=== PATIENT | male | born 1960 | race Caucasian/White ===

== ENCOUNTER → 2018-12-06 | Outpatient (CLI) | payer OTHER | LOC: M SMT 15:08 | PROVIDERS: ATTEND Nurse Practitioner Women's Health | DX: R97.20 Elevated prostate specific antigen [PSA] (principal) | CPT/HCPCS: 36415; G0463 ==

== ENCOUNTER → 2018-12-21 | Outpatient (CLI) | payer OTHER | LOC: M SMT PRO 09:31 | PROVIDERS: ATTEND Urology | DX: R97.20 Elevated prostate specific antigen [PSA] (principal); Z53.9 Procedure and treatment not carried out, unspecified reason ==

== ENCOUNTER → 2021-04-16 | Outpatient (CLI) | payer OTHER ==
[~2021-04-16] MED LIST: AMLO10TA PO; CRES20TA2 PO; ELIQ5TAB PO; K-TA10TA PO; TOPI1CAP4 PO; TOPR50TA PO; ZEST1TAB2 PO
--- NOTE | 2021-04-16 16:33 | RADONC.CN ---
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 [facility]. Diagnosis/Treatment History Oncologic History Followed by Dr. Meek for elevated PSA Smooth prostate on exam January 2020 8.7 01/18/21 TRUS biopsy [place] 3+4=7 in 1/12 core [place] 3+3=6 in 3/12 cores IPSS 0 SUNDAY 20 Interval History Donte feels well he has no urinary complaints. No nocturia or frequency, stream is strong. Has regular bowel movements daily. No bleeding per rectum. He has no erectile complaints, has full erectile and ejaculatory function. No fatigue. Appetite good and weight stable. Past Medical History: HTN PAF on eliquis Past Surgical History: Hip replacement Family History: Father prostate cancer Social History: Former smoker of cigars Does not drink Allergies / Meds Home Meds Reported Medications Metoprolol Succinate (Toprol Xl) 50 Mg Tab.er.24h, 50 MG PO BID, TAB 04/16/21 Rosuvastatin Calcium (Crestor) 20 Mg Tablet, 20 MG PO DAILY for 30 Days, #30 TAB 04/16/21 Potassium Chloride (K-Tab ER) 10 Meq Tablet.er, 10 MEQ PO BID, TAB 04/16/21 Lisinopril/Hydrochlorothiazide (Zestoretic 20-12.5 mg Tablet) 1 Each Tablet, 1 TAB PO, TAB 04/16/21 Apixaban (Eliquis) 5 Mg Tablet, 1 TAB PO BID for 30 Days, #60 TAB 04/16/21 Amlodipine Besylate (Norvasc) 10 Mg Tablet, 1 TAB PO DAILY for 30 Days, #30 TAB 04/16/21 Discontinued Reported Medications Topiramate (Topiramate ER) 50 Mg Cap.spr.24, 50 MG PO 04/16/21 Review of Systems Constitutional: Denies: Chills, Fever, Weight Loss Eyes: Denies: Pain HEENT: Denies: Head Aches Pulmonary: Denies: Dyspnea, Cough Cardiovascular: Denies: Chest Pain, Palpitations, Orthopnea, Edema Gastrointestinal: Denies: Abdominal Pain, Constipation, Hematochezia Genitourinary: Denies: Frequency, Incontinence, Retention Musculoskeletal: Denies: Neck pain, Back pain Neurological: Denies: Weakness, Numbness Psych: Reports: Mood Normal Vital Signs Wt 267 lbs T 96 P 86 RR 20 BP 101/65 O2 96% Pain 0 Fatigue 0 General Exam: Alert, Cooperative, No Acute Distress Eye Exam: PERRLA, EOMI ENT EXAM: Atraumatic Neck Exam: Supple Chest Exam: Clear to auscultation Heart Exam: Rate Normal Abdomen Exam: Soft; Negative: Tenderness Male Exam: Normal Prostate (Smooth 2+), Normal Sphincter Tone Extremity Exam: Negative: Edema Skin Exam: Nl turgor and temperature Neuro Exam: Normal Gait, Normal Speech, Strength at 5/5 X4 ext, Cranial Nerves 3-12 NL Psych Exam: Mental status NL Diagnostic and Laboratory Diagnostic Review Radiologic images, relevant labs and pathology reports were personally reviewed and discussed with Mr. Goyal. Assessment and Plan Impression Mr. Goyal is a 61 year old male with a history of favorable intermediate risk prostate cancer cT1c [place] 3+4=7 (4/12 cores+) PSA 8.7. [facility]. Stage Prostate cancer favorable intermediate risk [id number] [place] 3+4=7 (4/12 cores+) PSA 8.7 stage IIB Performance Status ECOG 0 Plan We had an extensive discussion with Mr. Goyal regarding the diagnosis at hand and available therapeutic options. He explained that he has opted against surgery and . He would like RT. Based on his excellent urinary function and favorable intermediate risk disease I recommended he consider SBRT 36.25 Gy in 5 fractions versus moderate hypofractionation 70 Gy in 28 fractions. We also discussed SpaceOAR and fiducial marker implantation as an option, the former to protect the rectum and reduce the risk of late rectal bleeding, the latter to facilitate more accurate treatment localization. He would like to consider his choices and will alert us with his decision We discussed the logistics of receiving radiation therapy in detail including the need for a 1-time planning session. This can occur in the next few weeks, generally I perform these ~ 2 weeks after SpaceOAR implant, should he choose to undergo this. We reviewed the side effects of treatment including fatigue, irritative voiding symptoms, late rectal bleeding, and latent ED. After discussing the risks, benefits and alternatives to radiation therapy, Mr. Huni was amenable to pursuing radiotherapy. All questions were answered to the patient's satisfaction. He will alert us of his selection in the coming weeks and we will proceed accordingly. We instructed the patient that if there were any questions,concerns or changes in clinical status in the interim to contact us. Recommendations SBRT versus moderate hypofractionation +/- SpaceOAR/fiducials He will alert us of his choices Follow up by phone in 2 weeks Billing Statement Total time of [46] minutes was spent preparing for the visit [3], obtaining HPI [7], examining the patient [3], reviewing diagnostic tests [3], discussing management options [19], coordinating care [4], and writing this note [7] MORAIMA ALEJANDRO MD Apr 16, 2021 16:33
== END ==
LOC: M ONCR 14:53
PROVIDERS: ATTEND General Practice
DX: C61 Malignant neoplasm of prostate (principal); Z79.899 Other long term (current) drug therapy; Z80.42 Family history of malignant neoplasm of prostate; Z87.891 Personal history of nicotine dependence

== ENCOUNTER → 2021-05-07 | Outpatient (RCR) | payer OTHER | LOC: M ONCR 13:56 | PROVIDERS: ATTEND General Practice | DX: C61 Malignant neoplasm of prostate (principal) ==

== ENCOUNTER → 2021-06-06 | Outpatient (RCR) | payer OTHER | LOC: M ONCR 05-08 16:04 | PROVIDERS: ATTEND General Practice | DX: C61 Malignant neoplasm of prostate (principal) ==

== ENCOUNTER 2021-06-26 14:27 | Outpatient (RCR) | payer OTHER | END 2021-07-07 | LOC: M ONCR 14:27 | PROVIDERS: ATTEND General Practice | DX: C61 Malignant neoplasm of prostate (principal) ==

== ENCOUNTER → 2022-03-19 | Outpatient (CLI) | payer OTHER | LOC: M ONCR 12:44 | PROVIDERS: ATTEND General Practice | DX: C61 Malignant neoplasm of prostate (principal) ==

== ENCOUNTER → 2022-03-25 | Outpatient (CLI) | payer OTHER | LOC: M ONCR 11:19 | PROVIDERS: ATTEND General Practice | DX: Z08 Encounter for follow-up examination after completed treatment for malignant neoplasm (principal); Z85.46 Personal history of malignant neoplasm of prostate; Z79.01 Long term (current) use of anticoagulants; Z79.899 Other long term (current) drug therapy; Z87.891 Personal history of nicotine dependence; Z92.3 Personal history of irradiation ==

== ENCOUNTER → 2023-03-18 | Outpatient (CLI) | payer OTHER ==
[~2023-03-18] MED LIST changes: -K-TA10TA PO; +POTA-164 PO
== END ==
LOC: M ONCM 14:21
PROVIDERS: ATTEND General Practice
DX: C61 Malignant neoplasm of prostate (principal)

== ENCOUNTER → 2023-03-25 | Outpatient (CLI) | payer OTHER | LOC: M ONCR 10:00 | PROVIDERS: ATTEND General Practice | DX: Z53.9 Procedure and treatment not carried out, unspecified reason (principal) ==

== ENCOUNTER 2023-05-07 08:19 | Emergency (ER) | payer OTHER ==
[~2023-05-07] VITALS: Ht 177.8 cm; Wt 109.0 kg
[~2023-05-07 08:19] MED LIST changes: +FLOM0.4C39 PO
[2023-05-07] MEDS ORDERED: PROPARACAINE 0.5% OPHTH SOL 15ML OS ONE (09:35)
[2023-05-07] MEDS ORDERED: FLUORESCEIN OPHTH 1MG STRIP OS ONE (09:35)
[2023-05-07] MEDS ORDERED: POLY2.5S OP (10:53)
[2023-05-07 11:12] VITALS: BP 141/73; TEMP 98.2; O2SAT 100
[2023-05-08] MEDS ORDERED: TAMS1CAP17 PO (12:58)
== END 2023-05-07 11:21 | disposition home or self-care (01) ==
LOC: M ED 09:51
DX: H10.32 Unspecified acute conjunctivitis, left eye (principal); I10 Essential (primary) hypertension; I48.91 Unspecified atrial fibrillation; Z79.899 Other long term (current) drug therapy; Z79.01 Long term (current) use of anticoagulants

== ENCOUNTER 2023-05-11 06:30 | Emergency (ER) | payer OTHER ==
[~2023-05-11] VITALS: Ht 177.8 cm; Wt 111.4 kg
[~2023-05-11 06:30] MED LIST changes: +POLY2.5S OP; +TAMS1CAP17 PO
[2023-05-11 08:26] LABS: BASO % 0.2 % (0.0-1.0); EOS % 0.2 % (0.0-3.0); HEMATOCRIT 44.3 % (42.0-52.0); HEMOGLOBIN 14.7 g/dl (13.5-17.5); LYMPH # 0.7 10^3/uL (1.5-5.0); LYMPH % 6.4 % (24.0-44.0); MEAN CORPUSCULAR HEMOGLOBIN 29.2 pg (27.0-33.0); MEAN CORPUSCULAR HGB CONC 33.2 g/dl (32.0-36.5); MEAN CORPUSCULAR VOLUME 87.9 fl (80.0-96.0); MONO % 9.1 % (2.0-8.0); NEUTROPHILS # 8.7 10^3/uL (1.5-8.5); NEUTROPHILS % 83.8 % (36.0-66.0); PLATELET COUNT, AUTOMATED 268 10^3/uL (150-450); RED BLOOD COUNT 5.04 10^6/uL (4.30-6.10); WHITE BLOOD COUNT 10.4 10^3/uL (4.0-10.0)
[2023-05-11 08:37] LABS: INR 1.55; PROTHROMBIN TIME 18.2 SECONDS (12.5-14.5)
[2023-05-11 08:38] LABS: ERYTHROCYTE SEDIMENTATION RATE 59 mm/hr (0-20); PARTIAL THROMBOPLASTIN TIME 33.9 SECONDS (24.8-34.2)
[2023-05-11 08:52] LABS: ALBUMIN 3.6 G/DL (3.2-5.2); BILIRUBIN,DIRECT 0.6 MG/DL (<0.4); BILIRUBIN,TOTAL 1.6 MG/DL (0.3-1.2); C REACTIVE PROTEIN QUANTITATIV 15.3 MG/DL (<1.0); CALCIUM LEVEL 9.5 MG/DL (8.3-10.6); CREATININE FOR GFR 1.32 MG/DL (0.70-1.30); GLOMERULAR FILTRATION RATE 58.7 (>49); POTASSIUM SERUM 3.7 MMOL/L (3.5-5.1); TOTAL PROTEIN 7.4 G/DL (5.7-8.2)
[2023-05-11] MEDS ORDERED: ceFAZolin SOD 2 GM in IV 1 EA IV ONE (10:20)
[2023-05-11] MEDS ORDERED: FUROSEMIDE 20MG/2ML VIAL IV ONE (10:20)
[2023-05-11] MEDS ORDERED: LASI20TA3 PO ×2 (12:07→13:47)
[2023-05-11] MEDS ORDERED: DOXY-443 PO ×2 (12:07→13:47)
[2023-05-11 12:16] VITALS: BP 125/75; TEMP 97.3; O2SAT 99
== END 2023-05-11 12:21 | disposition home or self-care (01) ==
LOC: M ED 06:30
DX: L03.116 Cellulitis of left lower limb (principal); I48.91 Unspecified atrial fibrillation; I10 Essential (primary) hypertension; C61 Malignant neoplasm of prostate; Z79.01 Long term (current) use of anticoagulants; Z79.899 Other long term (current) drug therapy
CPT/HCPCS: 71046; 80048; 80076; 83880; 85025; 85610; 85652; 85730; 86140; 93005; 93971; 96365; 96375; 99284; J0690; J1940

== ENCOUNTER → 2024-04-01 | Outpatient (CLI) | payer OTHER ==
[~2024-04-01] MED LIST changes: +DOXY-323 PO; +LASI20TA3 PO
== END ==
LOC: M ONCR 15:34
PROVIDERS: ATTEND General Practice
DX: Z08 Encounter for follow-up examination after completed treatment for malignant neoplasm (principal); Z85.46 Personal history of malignant neoplasm of prostate; Z79.01 Long term (current) use of anticoagulants; Z79.899 Other long term (current) drug therapy; Z87.891 Personal history of nicotine dependence; Z92.3 Personal history of irradiation

== ENCOUNTER → 2025-03-31 | Outpatient (CLI) | payer OTHER ==
[~2025-03-31] MED LIST changes: +AMLO-751 PO; -AMLO10TA PO; -DOXY-323 PO; +DOXY-441 PO; -FLOM0.4C39 PO; +TAMS-18 PO
== END ==
LOC: M ONCR 12:50
PROVIDERS: ATTEND General Practice
DX: C61 Malignant neoplasm of prostate (principal); Z79.01 Long term (current) use of anticoagulants; Z79.899 Other long term (current) drug therapy; Z87.891 Personal history of nicotine dependence; Z92.3 Personal history of irradiation
CPT/HCPCS: 36415; 84153; G0463